=== PATIENT | female | born 1930 | race Caucasian/White ===

== ENCOUNTER 2018-03-03 13:26 | Outpatient (CLI) | payer MEDICARE ==
--- NOTE | 2018-03-03 15:39 | ULT ---
THYROID ULTRASOUND: HISTORY: Hypothyroidism. COMPARISON: None. TECHNIQUE: Sagittal and transverse imaging of the thyroid gland is performed. FINDINGS: There is heterogeneity throughout the thyroid gland without discrete mass lesion. The thyroid isthmus measures 0.3 cm. The thyroid lobe measures 2.8 x 1.4 x 2.1 cm. The left thyroid lobe measures 2.8 x 1.1 x 1.3 cm. IMPRESSION: Heterogeneity throughout the thyroid gland without associated discrete mass. POS: DELMISH
== END 2018-03-03 13:27 | disposition home or self-care (01) ==
LOC: SCSULT 13:26
PROVIDERS: ATTEND Internal Medicine Geriatric Medicine
DX: E03.9 Hypothyroidism, unspecified (principal); R93.8 Abnormal findings on diagnostic imaging of other specified body structures
CPT/HCPCS: 76536